=== PATIENT | female | born 1930 | race Caucasian/White ===

== ENCOUNTER → 2016-07-05 | Outpatient (CLI) | payer BC | END | disposition home or self-care (01) | LOC: PCVCIMAG 13:34 | PROVIDERS: ATTEND Nuclear Medicine Nuclear Cardiology | DX: I70.211 Atherosclerosis of native arteries of extremities with intermittent claudication, right leg (principal); I10 Essential (primary) hypertension; G30.9 Alzheimer's disease, unspecified | CPT/HCPCS: 93926 ==

== ENCOUNTER → 2017-11-06 | Outpatient (CLI) | payer BC | END | disposition home or self-care (01) | LOC: PCVCIMAG 14:24 | DX: I65.23 Occlusion and stenosis of bilateral carotid arteries (principal); I73.9 Peripheral vascular disease, unspecified | CPT/HCPCS: 93880; 93925 ==

== ENCOUNTER → 2018-06-17 | Outpatient (CLI) | payer BC ==
--- NOTE | 2018-06-17 14:38 | PCVCIMAG ---
EXAM: BILATERAL LOWER EXTREMITY ARTERIAL DUPLEX INDICATION: Peripheral Arterial Disease. Leg pain. Previous right SFA stent 2016. Right toe redness and numbness. FINDINGS: Right Leg: Common femoral and profunda femoral arteries are patent. Superficial femoral artery and popliteal artery showing good patency. Previous stent distal superficial femoral artery maintaining good patency. 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 70% stenosis proximal peroneal artery with previous angiogram showing this to be a small vessel. The anterior tibial artery was the dominant runoff vessel on the prior angiogram and it shows good patency throughout with strong arterial waveforms in the dorsalis pedis. Left Leg: Common femoral and profunda femoral arteries are patent. Superficial femoral artery is patent. Mild stenosis distal popliteal artery not felt to be flow-limiting. Posterior tibial artery is occluded in its mid/distal portion. The peroneal and anterior tibial arteries are patent. IMPRESSION: Previous right superficial femoral artery stent is widely patent. 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 Interval development of 70% stenosis in the right peroneal artery although this vessel is small. Good right anterior tibial artery runoff into the dorsalis pedis remains patent. Occlusion distal left posterior tibial artery. Otherwise no flow limiting stenosis in the left lower extremity. LOC:[place] [id number]
== END | disposition home or self-care (01) ==
LOC: PCVCIMAG 10:02
PROVIDERS: ATTEND Podiatrist Foot & Ankle Surgery
DX: I73.9 Peripheral vascular disease, unspecified (principal); R20.0 Anesthesia of skin
CPT/HCPCS: 93925